=== PATIENT | female | born 1960 | race Caucasian/White ===

== ENCOUNTER 2016-07-16 12:35 | Day surgery (SDC) | payer OTHER ==
[~2016-07-16] VITALS: Ht 160 cm; Wt 63.7 kg
[2016-07-16 12:55] VITALS: Ht 160 cm; Wt 63.7 kg
[2016-07-16] MEDS ORDERED: BLOOD PRESSURE MED (13:06)
[2016-07-16] MEDS ORDERED: OMEP40CA6 PO (13:06)
[2016-07-16] MEDS ORDERED: LEVO50TA74 PO (13:06)
[2016-07-16] MEDS ORDERED: LIDOCAINE 2% (SDV) 5 ML INJ ONE (13:15)
[2016-07-16] MEDS ORDERED: PROPOFOL 40 ML ONE (13:15)
[2016-07-16 13:37] VITALS: BP 97/53; PULSE 95; RESP 15
[2016-07-16 14:12] VITALS: BP 128/67; PULSE 66
--- NOTE | 2016-07-16 14:13 | OPR ---
DATE OF OPERATION: 07/16/2016 PREOPERATIVE DIAGNOSIS: History of carcinoid tumor of the rectum. POSTOPERATIVE DIAGNOSIS: Surgical scarring seen at 10 cm from the anal verge, otherwise bunny l colon. PROCEDURE PERFORMED: Colonoscopy. ENDOSCOPIST: Ray Ho MD ANESTHESIA: General anesthetic using IV propofol by the staff anesthesiologist. INDICATIONS FOR PROCEDURE: Ms. Mcpherson is a 55-year-old female who in April of 2015 underwent a transanal excision of a small carcinoid tumor. She presents for surveillance colonoscopy. Informed consent was obtained prior to the procedure. DESCRIPTION OF PROCEDURE: The patient was brought to the endoscopy suite and placed in left lateral decubitus position. Next, after successful administration of general anesthetic using IV propofol by the staff anesthesiologist, a digital rectal examination was performed. This examination was nor mal. A pediatric colonoscope was placed in the patient's rectum via the anal canal and then passed proximally all the way to the patient's cecum. Identification of the cecum was confirmed by identif ication of the ileocecal valve and appendiceal orifice. Next, the colonoscope was gently withdrawn and the patient's cecum, ascending, transverse, descending, and sigmoid colon were carefully examine d and all these structures were normal. Next, the colonoscope was withdrawn to the patient's rectum , which was examined in both antegrade and retrograde fashion with assistance of the retroflex techn ique. The patient was found to have surgical scarring at 10 cm from the anal verge, but no evidence of any recurrent or residual carcinoid tumor. The colonoscope was then straightened and withdrawn from the patient after decompressing the gas from the distal colon and rectum. The procedure was no w complete and the patient was awoken from anesthetic. She was then transferred to recovery room in stable condition Following the procedure, the patient was given standard post-colonoscopy instructi ons as well as instructions to follow up in 3 months for continued surveillance of her history of re ctal carcinoid. Dictated By: RAY HARRINGTON/YELENA Conf#: [id number] DID#: [id number] CC: RAY HO MD;*EndCC*
== END 2016-07-16 16:45 | disposition home or self-care (01) ==
LOC: GIL 12:35
PROVIDERS: ATTEND Colon & Rectal Surgery
DX: Z09 Encounter for follow-up examination after completed treatment for conditions other than malignant neoplasm (principal); R10.9 Unspecified abdominal pain; K59.00 Constipation, unspecified; I10 Essential (primary) hypertension
CPT/HCPCS: 45378; Z7610